=== PATIENT | female | born 1980 | race Caucasian/White ===

== ENCOUNTER 2017-01-27 08:11 | Emergency (ER) | payer BC ==
[2017-01-27 08:23] VITALS: BP 117/72
--- NOTE | 2017-01-27 08:35 | UC ---
Upper Extremity HPI - HPI Summary HPI Summary: C/o right index finger tenderness x2 months. Yesterday, c/o increased pain, swelling, & redness to area. Denies injury. [ End ] - History of Current Complaint Chief Complaint: UCSkin Stated Complaint: RIGHT INDEX FINGER INJURY Time Seen by Provider: 01/27/17 08:24 Hx Obtained From: Patient Hx Last Menstrual Period: 01/03/17 ?: No Onset/Duration: Gradual Onset Severity Initially: Mild Severity Currently: Moderate Aggravating Factor(s): Movement Alleviating Factor(s): Nothing - Allergies/Home Medications Allergies/Adverse Reactions: Allergies Allergy/AdvReac Type Severity Reaction Status Date / Time Ketorolac AdvReac See Comment Verified 01/27/17 08:18 Home Medications: Home Medications Pantoprazole TAB (NF) [Protonix TAB (NF)] 40 mg PO DAILY 01/27/17 [History Confirmed 01/27/17] PMH/Surg Hx/FS Hx/Imm Hx Previously Healthy: Yes - Surgical History Surgical History: Yes Surgery Procedure, Year, and Place: august 2012 FESS and "turbinates trimmed" per pt-[facility]. gallbladder 2003 - Social History Occupation: Employed Full-time Lives: With Family Alcohol Use: Occasionally Substance Use Type: None Smoking Status (MU): Heavy Every Day Tobacco Smoker Type: Cigarettes Amount Used/How Often: 1/2 pack day Household Exposure Type: Cigarettes Cessation Counseling: Patient Advised to Stop - Immunization History Most Recent Tetanus Shot: unknown Review of Systems Constitutional: Negative Skin: Negative Eyes: Negative ENT: Negative Respiratory: Negative Cardiovascular: Negative Gastrointestinal: Negative Genitourinary: Negative Motor: Negative Neurovascular: Negative Musculoskeletal: Arthralgia Neurological: Negative Psychological: Negative All Other Systems Reviewed And Are Negative: Yes Physical Exam Triage Information Reviewed: Yes Appearance: Well-Appearing, No Pain Distress, Well-Nourished Vital Signs: Initial Vital Signs Temp 98.3 F 01/27/17 08:19 Pulse 85 01/27/17 08:19 Resp 16 01/27/17 08:19 BP 117/72 01/27/17 08:19 Pulse Ox 100 01/27/17 08:19 Vital Signs Reviewed: Yes Neck: Positive: 1 Respiratory Exam: Normal Cardiovascular Exam: Normal Musculoskeletal Exam: Normal Musculoskeletal: Positive: Strength Intact, ROM Intact, Other: - right index finger DIP with mild redness and warmth to touch. peripheral pulses intact and brisk. cap refill not determined due to acrylic nails. nail not affected at all. no pulp tenderness . Neurological Exam: Normal Psychological Exam: Normal Skin Exam: Normal Upper Extremity Course/Dx - Course Course Of Treatment: Try NSAIDs with meal and avoid alternative NSAIDs. F/U with PCP for labs. Monoarthropathy of the one joint perhaps from overuse yesterday flaring up the finger. no paronychia. rest of joints WNL and normal on exam. - Differential Dx/Diagnosis Differential Diagnosis/HQI/PQRI: Arthritis, Strain, Sprain Provider Diagnoses: Monoarthropathy of Right index finger inflammation / pain Discharge - Discharge Plan Condition: Good Disposition: HOME Prescriptions: Indomethacin CAP* [Indocin CAP*] 50 mg PO TID PRN #21 cap PRN Reason: Pain Patient Education Materials: Swollen Joint (ED) Referrals: Sara Macias [Primary Care Provider] - 1 Week
== END 2017-01-27 08:46 | disposition home or self-care (01) ==
LOC: UCCORT 08:11
DX: M13.141 Monoarthritis, not elsewhere classified, right hand (principal); Z88.5 Allergy status to narcotic agent; F17.210 Nicotine dependence, cigarettes, uncomplicated
CPT/HCPCS: 99211; G0463

== ENCOUNTER 2018-04-18 15:28 | Emergency (ER) | payer BC ==
[2018-04-18 16:02] VITALS: BP 129/83
--- NOTE | 2018-04-18 16:35 | UC ---
UC General HPI - HPI Summary HPI Summary: pt is c/o a rash to the sides or her nose and chin since last winter. now a couple of spots on eye lids as well. begins with pimple type spots then dries up and is very itchy. rash is worsening. she went to Dr Farmer(dermatology) early this summer. he tx with an antifungal cream with no relief then a topical steroid cream. the steroid gives transient partial relief then the rash returns. pt denies hx of MRSA and does not use makeup to the area of concern. no associated illness or arthralgia. - History of Current Complaint Chief Complaint: John Stated Complaint: FACE RASH Time Seen by Provider: 04/18/18 16:26 Hx Obtained From: Patient Hx Last Menstrual Period: 01/03/17 Onset/Duration: Gradual Onset Pain Intensity: 0 - Allergy/Home Medications Allergies/Adverse Reactions: Allergies Allergy/AdvReac Type Severity Reaction Status Date / Time ketorolac Allergy See Comment Verified 04/18/18 16:05 Home Medications: Home Medications Levonorgestrel (Iud) [Mirena IUD] 20 mcg IU DAILY 04/18/18 [History Confirmed ] PMH/Surg Hx/FS Hx/Imm Hx Previously Healthy: Yes - Surgical History Surgical History: Yes Surgery Procedure, Year, and Place: august 2012 FESS and "turbinates trimmed" per pt-[facility]. gallbladder 2003 - Family History Known Family History: Positive: Cardiac Disease - Social History Occupation: Employed Full-time - [employer] Alcohol Use: Occasionally Substance Use Type: None Smoking Status (MU): Heavy Every Day Tobacco Smoker Type: Cigarettes Amount Used/How Often: 1/2 pack day Household Exposure Type: Cigarettes - Immunization History Most Recent Tetanus Shot: unknown Vaccination Up to Date: Yes Review of Systems Constitutional: Negative Skin: Rash - face Eyes: Negative ENT: Negative Respiratory: Negative Cardiovascular: Negative Gastrointestinal: Negative Genitourinary: Negative Motor: Negative Neurovascular: Negative Musculoskeletal: Negative Neurological: Negative Psychological: Negative Is Patient Immunocompromised?: No All Other Systems Reviewed And Are Negative: Yes Physical Exam Triage Information Reviewed: Yes Appearance: Well-Appearing Vital Signs: Initial Vital Signs Temp 98.5 F 04/18/18 15:58 Pulse 76 04/18/18 15:58 Resp 16 04/18/18 15:58 BP 129/83 04/18/18 15:58 Pulse Ox 100 04/18/18 15:58 Vital Signs Reviewed: Yes Eyes: Positive: Conjunctiva Clear ENT: Positive: Normal ENT inspection Neck: Positive: Supple, Nontender, No Lymphadenopathy Respiratory: Positive: Lungs clear, Normal breath sounds Cardiovascular: Positive: RRR, No Murmur Abdomen Description: Positive: Nontender, No Organomegaly, Soft Bowel Sounds: Positive: Present Musculoskeletal: Positive: ROM Intact Neurological: Positive: Alert Psychological: Positive: Age Appropriate Behavior Skin Exam: Normal, Other - Tiny pimle like spots to sides of nose, chin and a spot to R upper eye lid. Course/Dx - Course Course Of Treatment: rash is concerning for a bacterila infection. no concern for fungal infection. doubt lupus. rosacea is possible. will tx with doxycycline and bactroban(pt advised to avoid placing ointment near eyes) and refer to Dr Talbert, [facility]. - Differential Dx - Multi-Symptom Provider Diagnoses: FACIAL DERMATITIS Discharge - Sign-Out/Discharge Documenting (check all that apply): Patient Departure All imaging exams completed and their final reports reviewed: No Studies - Discharge Plan Condition: Stable Disposition: HOME Prescriptions: DOXYcycline CAP(*) [DOXYcycline 100MG CAP(*)] 100 mg PO BID 10 Days #20 cap Mupirocin 2% OINT* [Bactroban 2 % Oint*] 1 applic TOPICAL BID 7 Days #1 tube Patient Education Materials: Rosacea (ED) Referrals: Дмитрий Talbert MD [Medical Doctor] - 7 Days Additional Instructions: DIAGNOSIS: ROSACEA LIKE DERMATITIS - Billing Disposition and Condition Condition: STABLE Disposition: Home
== END 2018-04-18 16:57 | disposition home or self-care (01) ==
LOC: UCCORT 15:28
DX: L30.9 Dermatitis, unspecified (principal); F17.210 Nicotine dependence, cigarettes, uncomplicated; Z88.6 Allergy status to analgesic agent
CPT/HCPCS: 99212; G0463